=== PATIENT | male | born 1975 | race African-American/Black ===

== ENCOUNTER 2018-10-25 21:53 | Inpatient (IN) ==
[2018-10-26] MEDS ORDERED: ONDANSETRON 4 MG/2 ML VIAL IV STA (01:38)
[2018-10-26] MEDS ORDERED: SODIUM CHLORIDE 0.9% 1,000 ML IV STA (01:38)
[2018-10-26] MEDS ORDERED: KETOROLAC 30 MG/1 ML VIAL IV STA (01:38)
[2018-10-26] MEDS ORDERED: MORPHINE 4 MG/1 ML VIAL IV STA ×2 (01:38→04:40)
[2018-10-26 03:54] LABS: Basophils # 0.1 10*3/uL (0.0-0.2); Basophils % 0.5 % (0.0-0.8); Eosinophils # 0.1 10*3/uL (0.0-0.87); Eosinophils % 0.5 % (0.00-10.9); Hemoglobin 15.4 GM/DL (14.0-18.0); Immature Granulocytes % 0.6 %; Immature Granulocytes Absolute 0.08 #; Lymphocytes # 3.4 10*3/uL (1.4-4.0); Lymphocytes % 24.9 % (21.2-54.2); Mean Corpuscular HGB Conc 33.5 GM/DL (32-36); Neutrophils % 65.5 % (38.7-73.9); Platelet Count 294 T/CUMM (130-400); Red Blood Count 5.35 MC/CUMM (3.8-5.5); Red Cell Distribution Width 14.6 % (9.3-17.3); White Blood Count 13.7 T/CUMM (4-12)
[2018-10-26 04:07] LABS: Bilirubin,Total 1.5 MG/DL (0.2-1.0); Calcium 9.2 MG/DL (8.5-10.1); Osmolality,Calculated 273.7 MOS/KG (273-304); Total Protein 8.7 G/DL (6.4-8.3)
[2018-10-26] MEDS ORDERED: CEFEPIME 2,000 MG in SODIUM CHLORIDE 0.9% 100 ML IV STA ×2 (04:39→04:45)
[2018-10-26] MEDS ORDERED: metroNIDAZOLE INJ 500 MG in PREMIX 1 EACH IV STA (04:40)
[2018-10-26] MEDS ORDERED: ONDANSETRON 4 MG/2 ML VIAL IV PRN (05:55)
[2018-10-26 06:17] LABS: Apearance,Urine CLEAR (Clear); Bilirubin,Urine Negative (Negative); Blood, Urine Negative (Negative); Glucose,Urine (UA) Negative (Negative); Ketones,Urine Negative (Negative); Mucus,Urine Few /LPF (Occasional); Nitrite,Urine Negative (Negative); Protein,Urine Negative; RBC,Urine <1 /HPF (0-4); Squamous Epithelial Cell,Urine Few /HPF (0-10); Urine Color Amber (Yellow); Urine Specific Gravity 1.034 (1.001-1.035); Urine Urobilinogen < 2.0 EU/DL (0.2-1.0); WBC,Urine <1 /HPF (0-6)
[2018-10-26] MEDS ORDERED: CEFEPIME 2,000 MG VIAL ONE (06:21)
[2018-10-26] MEDS ORDERED: PNEUMOCOCCAL VACCINE (23 VALENT) 0.5 ML VIAL IM ONE (07:49)
[2018-10-26] MEDS: PANTOPRAZOLE 40 MG TABLET PO SCH (10:07)
[2018-10-26] MEDS: metroNIDAZOLE INJ 500 MG in PREMIX 1 EACH IV SCH ×3 (10:07→23:15)
[2018-10-26] MEDS: MORPHINE 4 MG/1 ML VIAL IV PRN ×3 (11:48→21:30)
[2018-10-26] MEDS: LEVOFLOXACIN INJ 500 MG in PREMIX 1 EACH IV SCH (15:08)
[2018-10-26] MEDS: SODIUM CHLORIDE 0.9% 1,000 ML IV SCH (17:07)
[2018-10-27] MEDS: SODIUM CHLORIDE 0.9% 1,000 ML IV SCH ×2 (05:20→19:59)
[2018-10-27 05:23] LABS: Basophils % 0.5 % (0.0-0.8); Eosinophils # 0.3 10*3/uL (0.0-0.87); Eosinophils % 3.4 % (0.00-10.9); Hemoglobin 12.8 GM/DL (14.0-18.0); Immature Granulocytes % 0.4 %; Immature Granulocytes Absolute 0.03 #; Lymphocytes # 2.5 10*3/uL (1.4-4.0); Mean Corpuscular HGB Conc 33.7 GM/DL (32-36); Mean Corpuscular Volume 86.4 FL (87-102); Mean Platelet Volume 9.6 FL (9.6-12.0); Monocytes % 9.1 % (1.7-12.7); Neutrophils % 55.6 % (38.7-73.9); Platelet Count 224 T/CUMM (130-400); Red Cell Distribution Width 14.5 % (9.3-17.3); White Blood Count 8.2 T/CUMM (4-12)
[2018-10-27 05:43] LABS: Bilirubin,Total 1.2 MG/DL (0.2-1.0); Calcium 8.7 MG/DL (8.5-10.1); Osmolality,Calculated 276.4 MOS/KG (273-304); Total Protein 7.3 G/DL (6.4-8.3)
[2018-10-27] MEDS: metroNIDAZOLE INJ 500 MG in PREMIX 1 EACH IV SCH ×4 (05:54→21:12)
[2018-10-27] MEDS: amLODIPine 10 MG TABLET PO SCH (08:45)
[2018-10-27] MEDS: PANTOPRAZOLE 40 MG TABLET PO SCH (08:45)
[2018-10-27] MEDS: LEVOFLOXACIN INJ 500 MG in PREMIX 1 EACH IV SCH (12:09)
[2018-10-28] MEDS: metroNIDAZOLE INJ 500 MG in PREMIX 1 EACH IV SCH ×2 (03:11→08:44)
[2018-10-28] MEDS: amLODIPine 10 MG TABLET PO SCH (08:43)
[2018-10-28] MEDS: PANTOPRAZOLE 40 MG TABLET PO SCH (08:44)
[2018-10-28] MEDS: SODIUM CHLORIDE 0.9% 1,000 ML IV SCH (08:48)
[2018-10-28] MEDS: LEVOFLOXACIN INJ 500 MG in PREMIX 1 EACH IV SCH (11:38)
[2018-10-28 11:47] VITALS: BP 120/75
== END 2018-10-28 11:55 | disposition home or self-care (01) | DRG 392 ==
LOC: N.ED 21:53 → N.EDINP 21:53 → N.2E 10-26 07:15
PROVIDERS: ADMIT Internal Medicine; ATTEND Internal Medicine